=== PATIENT | female | born 1940 | race Caucasian/White ===

== ENCOUNTER → 2017-08-28 20:11 | Outpatient (CLI) | payer MEDICARE, OTHER ==
[2012-08-20 06:34] VITALS: BMI 24.8
== END | disposition home or self-care (01) ==
LOC: D.MAMMO 08-19 16:15
DX: Z12.31 Encounter for screening mammogram for malignant neoplasm of breast (principal)

== ENCOUNTER → 2018-05-14 10:39 | Outpatient (CLI) | payer MEDICARE, OTHER ==
[2012-08-20 06:34] VITALS: BMI 24.8
== END | disposition home or self-care (01) ==
LOC: D.RAD 10:39
DX: M94.0 Chondrocostal junction syndrome [Tietze] (principal)

== ENCOUNTER 2019-07-05 08:00 | Outpatient (CLI) | payer OTHER ==
[2012-08-20 06:34] VITALS: BMI 24.8
== END 2019-07-05 23:59 | disposition home or self-care (01) ==
LOC: D.MAMMO 08:00
PROVIDERS: ATTEND Family Medicine
DX: Z12.31 Encounter for screening mammogram for malignant neoplasm of breast (principal)